=== PATIENT | female | born 1990 | race African-American/Black ===

== ENCOUNTER 2022-11-21 08:59 | Emergency (ER) | payer SELFPAY ==
[2022-11-21 09:12] VITALS: BP 139/92; PULSE 88; RESP 18; TEMP 36.6; O2SAT 97
--- NOTE | 2022-11-21 09:16 | ED.URI ---
HPI - URI/Sore Throat General Chief Complaint: Upper Respiratory Infection Stated Complaint: cough Time Seen by Provider: 11/21/22 09:17 Source: patient and RN notes reviewed Mode of arrival: ambulatory Limitations: no limitations History of Present Illness HPI Narrative: 32 y/o female presented for c/o cough for at least 2 weeks. Cough is worse at night, productive of thick sputum. Endorses throat pain from coughing. Denies sob, wheezing, n/v/d/f/c. Taking NyQuil for symptoms. States she tested negative for Covid at the onset. MD elicited complaint: cough Related Data Home Medications Medication Instructions Recorded Confirmed escitalopram oxalate 10 mg tablet 10 mg PO DAILY 11/21/22 11/21/22 Allergies Allergy/AdvReac Type Severity Reaction Status Date / Time No Known Allergies Allergy Verified 11/21/22 09:18 Review of Systems Review of Systems: CONSTITUTIONAL: Denies malaise, chills, sweats, fever EYES: Denies visual changes, redness, or discharge ENT: Reports rhinorrhea, congestion, Denies otalgia, sore throat CARDIOVASCULAR: Denies chest pain, palpitations, edema RESPIRATORY: Reports cough, post nasal drainage. Denies dyspnea GASTROINTESTINAL: Denies abdominal pain, nausea, vomiting, diarrhea SKIN: Denies rash or itching MUSCULOSKELETAL: Denies myalgia NEUROLOGIC: Denies headache [facility] Past Medical History Medical History (Updated 11/21/22 @ 09:31 by Angelica Montesinos, [employer]) No pertinent past medical history Exam Narrative: GENERAL: well-appearing, nontoxic no acute distress. HEAD: Normocephalic EYES: conjunctivae clear ENT: Mucous membranes moist. TMs pearly smyth with dull light reflex bilaterally; no tragal tenderness. Oropharynx mildly erythematous without lesions or exudate, no drooling, no hoarseness, no trismus, uvula midline. No tripod positioning, muffled voice, soft palate or pharyngeal wall bulging NECK: Supple. No lymphadenopathy CHEST: Clear to auscultation, breath sounds equal. No wheezing, rhonchi, rales, or stridor. No respiratory distress, speaks in full sentences. HEART: Regular rate and rhythm. No murmur heard. SKIN: Warm, dry, no rash. NEURO: Alert and oriented x3. PSYCH: Normal mood and affect Course Course Emergency Course: Patient is aware of diagnosis, understands and agrees to treatment plan. Anticipatory guidance given. Patient agrees to follow-up as directed and is aware of reasons to seek care at the emergency department. Portions of this record may have been created with voice recognition software Level of Care: Express Care Visit Vital Signs Vital signs: Vital Signs Temperature 98 F 11/21/22 09:12 Pulse Rate 88 11/21/22 09:12 Respiratory Rate 18 11/21/22 09:12 Blood Pressure 139/92 H 11/21/22 09:12 Pulse Oximetry 97 11/21/22 09:12 Oxygen Delivery Room Air 11/21/22 09:12 Temperature 98 F 11/21/22 09:12 Pulse Rate 88 11/21/22 09:12 Respiratory Rate 18 11/21/22 09:12 Blood Pressure 139/92 H 11/21/22 09:12 Pulse Oximetry 97 11/21/22 09:12 Oxygen Delivery Room Air 11/21/22 09:12 reviewed MDM - URI/Sore Throat MDM Narrative Medical decision making narrative: Discussed physical exam findings. Advised supportive measures and signs/symptoms to go to the ER. Pt is appropriate for outpt treatment and f/u. Differential Diagnosis Differential diagnosis: Likely upper respiratory infection, sinusitis, viral infection and bronchitis Discharge Plan Discharge Clinical Impression: Upper respiratory infection Patient Disposition: Home, Self-Care Condition: Stable Instructions: Antibiotic Form, Upper Respiratory Infection (ED) Additional Instructions: Take medication as directed Recommend Flonase spray and Zyrtec (or Claritin/Chantel) over the counter Cough syrup may cause drowsiness; avoid driving or take it at night time. Tylenol 1000mg every 8 hours as needed for pain Symptomatic treatment inclu
== END 2022-11-21 09:30 | disposition home or self-care (01) ==
PROVIDERS: Emergency Provider Nurse Practitioner Family; PCP Physician Assistant
DX: J06.9 Acute upper respiratory infection, unspecified (principal)
CPT/HCPCS: 99213; G0463

== ENCOUNTER 2023-01-23 19:01 | Emergency (ER) | payer SELFPAY ==
[2023-01-23 19:23] VITALS: BP 138/84; PULSE 79; RESP 16; TEMP 36.9; O2SAT 100
--- NOTE | 2023-01-23 21:17 | ED.GENADULT ---
HPI - General Adult General Chief complaint: Upper Respiratory Infection Stated complaint: Cough/Shortness of Breath Time Seen by Provider: 01/23/23 21:18 Source: patient, RN notes reviewed and old records reviewed Mode of arrival: ambulatory Limitations: no limitations History of Present Illness HPI narrative: 33-year-old female presents to [facility] with complaints of 3-4 week duration of cough treated previously f hasor similar symptoms with antibiotic, prednisone, and Tessalon Perles with some improvement in her symptoms. Patient reports that cough is productive of thick mucous and she noted some shortness of breath with the cough. Patient reports that she has been taking Cough medication and also some decogestants. Patient reports no recent fevers, denies any sore throat or any body aches. MD complaint: cough with thick mucous some dyspnea, fatigue Onset (ago): week(s) (3-4) Severity: moderate Exacerbating factors: other (exertion) Treatments prior to arrival: other (cough medication and also decogestants) Related Data Allergies Allergy/AdvReac Type Severity Reaction Status Date / Time No Known Allergies Allergy Verified 01/23/23 20:43 Review of Systems Review of Systems: CONSTITUTIONAL: Reports malaise,no chills, sweats, or fever. EYES: Denies visual changes, redness, or discharge. ENT: Reports rhinorrhea, congestion,no sinus pain,no otalgia and no sore throat. CARDIOVASCULAR: Denies chest pain, palpitations, or edema. RESPIRATORY: Reports productive cough.? Reports some dyspnea at times with cough GASTROINTESTINAL: Denies abdominal pain, nausea, vomiting, diarrhea SKIN: Denies rash or itching. MUSCULOSKELETAL: Denies myalgia. NEUROLOGIC: Denies headache. All systems reviewed & are unremarkable except as noted in HPI and below ON LICENSE OF [facility] Past Medical History Medical History (Updated 01/26/23 @ 17:29 by Linda Rust NP) No pertinent past medical history Social History Social History (Updated 01/26/23 @ 17:26 by Linda Rust NP) Smoking status: Never smoker Alcohol intake: current Alcohol use details: rare social Substance use type: does not use Living arrangements: with family Gender identity (if verbalized by the patient): Female Comments At time of signature, agree with nursing past medical, surgical, social and family history. There is no relevant family history pertinent to the presenting complaint Exam Narrative: GENERAL: Well-appearing, well-nourished, and in no acute distress. HEAD: Normocephalic EYES: PERRLA, conjunctivae clear ENT: Nares clear, turbinates edematous and erythematous, clear discharge. Mucous membranes moist. TM pearly smyth with dull light reflex bilaterally; no tragal tenderness. Oropharynx erythematous without lesions. Tonsils not enlarged and without exudate, no drooling, no hoarseness, no trismus, uvula midline.post nasal drainage NECK: Supple. No lymphadenopathy CHEST: Clear to auscultation, breath sounds equal. No wheezing, rhonchi, rales, or stridor. No respiratory distress, speaks in full sentences.productive cough no tachypnea noted SAO2 100% on room air HEART: Regular rate and rhythm. No murmur heard. SKIN: Warm, dry, no rash. NEURO: Alert and oriented x3. PSYCH: Normal mood and affect Course Course Emergency Course: Patient is aware of diagnosis, understands and agrees to treatment plan.? Anticipatory guidance given.? Patient agrees to follow-up as directed and is aware of reasons to seek care at the emergency department. Portions of this record may have been created with voice recognition software Level of Care: Express Care Visit Vital Signs Vital signs: Vital Signs Temperature 36.9 C 01/23/23 19:23 Pulse Rate 79 01/23/23 19:23 Respiratory Rate 16 01/23/23 19:23 Blood Pressure 138/84 01/23/23 19:23 Pulse Oximetry 100 01/23/23 19:23 Oxygen Delivery Room Air 01/23/23 19:23 T
== END 2023-01-23 21:42 | disposition home or self-care (01) ==
PROVIDERS: Emergency Provider Registered Nurse; PCP Physician Assistant
DX: J32.9 Chronic sinusitis, unspecified (principal)
CPT/HCPCS: 99213; G0463